=== PATIENT | male | born 1965 | race Caucasian/White ===

== ENCOUNTER 2020-12-22 04:40 | Inpatient (IN) | payer OTHER ==
[~2020-12-22] VITALS: Ht 182.9 cm; Wt 93.0 kg
[2020-12-22] MEDS ORDERED: KETOROLAC TROMETHAMINE INJ 30 MG/ML VIAL IV ONE (07:30)
[2020-12-22] MEDS ORDERED: KETOROLAC TROMETHAMINE 15 MG/ML VIAL ONE (07:32)
--- NOTE | 2020-12-22 08:28 | NUR ---
Reclining in bed NO obvious distress made aware of plan of care
[2020-12-22 08:42] LABS: BASOPHILS # (AUTO) 0.1 K/uL (0.0-0.2); BASOPHILS % (AUTO) 0.5 % (0.0-2.0); EOSINOPHILS % (AUTO) 0.1 % (0.0-6.0); HEMATOCRIT 43 % (39-51); HEMOGLOBIN 14.5 g/dL (13.5-17.5); LYMPHOCYTES # (AUTO) 1.4 K/uL (0.8-4.8); LYMPHOCYTES % (AUTO) 10.2 % (20.0-44.0); MEAN CORPUSCULAR HGB CONC 34 g/dl (31.0-36.0); MEAN CORPUSCULAR VOLUME 97 fL (80-96); MONOCYTES # (AUTO) 0.9 K/uL (0.1-1.30); MONOCYTES % (AUTO) 6.6 % (2.0-12.0); NEUTROPHILS # (AUTO) 11.6 K/uL (1.8-8.9); NEUTROPHILS % (AUTO) 82.6 % (43.0-81.0); PLATELET COUNT (AUTO) 400 K/uL (150-450); RED BLOOD CELL COUNT(AUTO) 4.41 MIL/uL (4.5-6.0)
[2020-12-22 08:49] LABS: CALCIUM, SERUM 8.9 mg/dL (8.5-10.1); CARBON DIOXIDE 27 mmol/L (21-32); CHLORIDE 105 mmol/L (98-107); CREATININE 1.2 mg/dL (0.6-1.3); GLUCOSE 114 mg/dL (74-106); POTASSIUM 4.2 mmol/L (3.5-5.1); SODIUM SERUM 141 mmol/L (136-145); UREA NITROGEN, BLOOD 17 mg/dL (7-18)
[2020-12-22] MEDS ORDERED: IV NS 0.9% 250 ML IV ONE (09:14)
[2020-12-22] MEDS ORDERED: IOHEXOL-350 100 ML VIAL IV ONE (09:14)
[2020-12-22 09:41] LABS: BAND % (MANUAL) 1 % (0.0-5.0); LYMPHOCYTES % (MANUAL) 4 % (16-48); METAMYELOCYTES % 1 % (0-0); MONOCYTES % (MANUAL) 12 % (0-11.0); NEUTROPHILS % (MANUAL) 82 (42-76)
--- NOTE | 2020-12-22 10:03 | NUR ---
MOVE SHEET SUBMITTED AND CALLED FOR BED.
[2020-12-22] MEDS ORDERED: MORPHINE SULFATE INJ 4 MG/ML DISP.SYRIN ONE (10:28)
[2020-12-22] MEDS ORDERED: MORPHINE SULFATE INJ 2 MG/ML DISP.SYRIN IV ONE (10:30)
[2020-12-22] MEDS ORDERED: LIDOCAINE 1% INJ 50 ML MDV IJ ONE ×2 (10:39→12:54)
--- NOTE | 2020-12-22 10:45 | NUR ---
Dr Gauthier at bedside updated pt with plan of care. Consent and prepared for Chest Tube placement. Medicated as per order
--- NOTE | 2020-12-22 12:42 | NUR ---
pt states "feeling better/breathing easier." Able to tolerate sips of clears. For admission- await bed assignment
[2020-12-22] MEDS ORDERED: Z GUARD REMEDY 2 OZ OINT TP PRN (14:00)
[2020-12-22] MEDS ORDERED: MAGNESIUM HYDROXIDE 30 ML UDC PO PRN (14:00)
[2020-12-22] MEDS ORDERED: MAG HYDROX/AL HYDROX/SIMETH 30 ML UDC PO PRN (14:00)
[2020-12-22] MEDS ORDERED: ZOLPIDEM TARTRATE 5 MG TABLET PO PRN (14:00)
[2020-12-22] MEDS ORDERED: ONDANSETRON HCL/PF 4 MG/2 ML VIAL IVP PRN (14:00)
--- NOTE | 2020-12-22 15:03 | NUR ---
Pt states "feel much better/breathing easier. "Denies any pain Able to tolerate/ate Lunch 100%
--- NOTE | 2020-12-22 15:50 | NUR ---
room [id number]
--- NOTE | 2020-12-22 16:45 | NUR ---
Nurse [facility] [employer] to [facility]. Pt made aware of transfer. VSS
[2020-12-22 17:00] VITALS: BP 141/85
--- NOTE | 2020-12-22 17:00 | NUR ---
RN NOTES RECEIVED PT FROM ER. A/O X4. ON 2L O2 VIA NC. NO SOB OR ANY RESPIRATORY DISTRESS NOTED. NO PAIN REPORTED AT THIS TIME. SKIN IS INTACT. IV ACCES AT L AC #20 INTACT, PATENT AND FLUSHED. R CHEST [place] TUBE IN PLACE. REFUSED FLU AND COVID VACCINE. BELONGING LIST SIGNED. SAFETY MEASURES IN PLACE. CALL LIGHT WITHIN REACH. BED LOCKED AND IN LOWEST POSITION WITH SIDE RAILS UP X2. WILL CONTINUE TO MONITOR.
--- NOTE | 2020-12-22 18:51 | NUR ---
RN CLOSING NOTES NO SIGNIFICANT CHANGES THROUGHOUT THE SHIFT. NO SOB OR ANY DISTRESS NOTED. NO PAIN REPORTED AT THIS TIME. KEPT CLEAN AND COMFORTABLE. ALL DUE MEDS GIVEN. NEEDS ATTENDED. SAFETY MEASURES IN PLACE. WILL ENDORSE TO NIGHT RN FOR TYRELL.
[2020-12-22 20:00] VITALS: BP 132/81
[2020-12-23] VITALS: BP 139/91
[2020-12-23 04:00] VITALS: BP 138/82
--- NOTE | 2020-12-23 06:55 | NUR ---
RN CLOSING NOTES NO SIGNIFICANT CHANGES IN CONDITION DURING THE NIGHT, REMAIN STABLE, NO SOB OR ANY DISTRESS NOTED, RIGHT LATERAL CHEST HE[place] PLURAL IN PLACED, NO DISCOMFORT/PAIN REPORTED, ALL SAFETY MEASURES IN PLACE. WILL ENDORSE TO ONCOMING NURSE FOR CONTINUATION CARE.
[2020-12-23 07:32] LABS: BASOPHILS % (AUTO) 0.5 % (0.0-2.0); EOSINOPHILS % (AUTO) 1.2 % (0.0-6.0); HEMATOCRIT 43 % (39-51); HEMOGLOBIN 14.2 g/dL (13.5-17.5); LYMPHOCYTES # (AUTO) 1.9 K/uL (0.8-4.8); LYMPHOCYTES % (AUTO) 20.1 % (20.0-44.0); MEAN CORPUSCULAR HGB CONC 33 g/dl (31.0-36.0); MEAN CORPUSCULAR VOLUME 99 fL (80-96); MONOCYTES # (AUTO) 0.9 K/uL (0.1-1.30); MONOCYTES % (AUTO) 9.8 % (2.0-12.0); NEUTROPHILS # (AUTO) 6.4 K/uL (1.8-8.9); NEUTROPHILS % (AUTO) 68.4 % (43.0-81.0); PLATELET COUNT (AUTO) 367 K/uL (150-450); RED BLOOD CELL COUNT(AUTO) 4.34 MIL/uL (4.5-6.0); WHITE BLOOD COUNT (AUTO) 9.4 K/uL (4.3-11.0)
[2020-12-23 07:40] LABS: CALCIUM, SERUM 8.9 mg/dL (8.5-10.1); CREATININE 1.1 mg/dL (0.6-1.3); MAGNESIUM 2.4 mg/dL (1.8-2.4); PHOSPHORUS 2.1 mg/dL (2.5-4.9); POTASSIUM 4.2 mmol/L (3.5-5.1)
[2020-12-23 08:00] VITALS: BP 124/86
[2020-12-23 09:39] LABS: BAND % (MANUAL) 6 % (0.0-5.0); LYMPHOCYTES % (MANUAL) 20 % (16-48); MONOCYTES % (MANUAL) 10 % (0-11.0); NEUTROPHILS % (MANUAL) 64 (42-76)
[2020-12-23] MEDS ORDERED: MIDAZOLAM HCL 2 MG/2ML VIAL IV ONE ×3 (11:00→17:30)
[2020-12-23] MEDS ORDERED: FENTANYL PF 100MCG/2ML AMPUL IV ONE (11:00)
[2020-12-23 12:00] VITALS: BP 124/86
[2020-12-23] MEDS ORDERED: K PHOS NEUTRAL 250 MG TABLET PO ONE (13:00)
[2020-12-23 16:00] VITALS: BP 124/86
[2020-12-23] MEDS ORDERED: FENTANYL PF 100MCG/2ML AMPUL IV PRN (17:30)
[2020-12-23] MEDS: HYDROMORPHONE 1 MG/1 ML DISP.SYRIN IV PRN ×2 (19:10→22:14)
--- NOTE | 2020-12-23 19:21 | NUR ---
rn note doctor ordered 100mcg of fentanyl to be used
--- NOTE | 2020-12-23 19:30 | NUR ---
RN NOTES, RECEIVED PATIENT IN BED A/O X4 ABLE TO VERBALIZE NEEDS AND CONCERNS, NO SOB/ACUTE DISTRESS NOTED, BREATHING EVEN AND UNLABORED, WITH NEW CHEST TUBE ON RIGHT ANTERIOR CHEST WALL CONNECTED TO PLEUR-EVAC, NO DRAINAGE NOTED, FOR AIR RELEASE, DRESSING DRY AND INTACT, CHEST TUBE SECURED, ON PAIN MANAGEMENT, ISOLATION PRECAUTIONS IN PLACED FOR COVID, CALL LIGHT W/I REACH, WILL CONT TO MONITOR CLOSELY.
[2020-12-23 20:00] VITALS: BP 139/83
[2020-12-24] VITALS: BP 138/82
[2020-12-24 04:00] VITALS: BP 135/79
[2020-12-24] MEDS: HYDROMORPHONE 1 MG/1 ML DISP.SYRIN IV PRN ×3 (05:54→16:05)
[2020-12-24 06:51] LABS: CALCIUM, SERUM 8.3 mg/dL (8.5-10.1); CREATININE 1.2 mg/dL (0.6-1.3); MAGNESIUM 2.2 mg/dL (1.8-2.4); POTASSIUM 4.1 mmol/L (3.5-5.1)
[2020-12-24 08:00] VITALS: BP 152/100
[2020-12-24 12:00] VITALS: BP 147/93
[2020-12-24 16:00] VITALS: BP 144/95
--- NOTE | 2020-12-24 18:53 | NUR ---
RN NOTES, PATIENT A/O X4, NO SOB/ACUTE DISTRESS NOTED, CHEST TUBE IN PLACED TO RELEASE AIR FOR EXPANSION OF THE RIGHT LUNG, NO SIGNIFICANT CHANGE CONDITION DURING MY SHIFT, REMAINS STABLE. WILL ENDORSE CONTINUITY OF CARE TO ONCOMING NURSE.
--- NOTE | 2020-12-24 19:30 | NUR ---
RN NOTE RECEIVED PATIENT IN BED RESTING ALERT ORIENTED X4 VERBALLY RESPONSIVE ON 2L OXYGEN VIA NASAL CANNULA O2:95% IV SITE IS ON LEFT AC INTACT PATENT ,CHEST TUBE IN RIGHT SIDE,CONTINET TO BOWEL/BLADDER SAFETY MEASURE IMPLEMENT CALL LIGHT WITHIN REACH CONTINUE TO MONITOR.
[2020-12-24 20:00] VITALS: BP 140/95
[2020-12-24] MEDS: ACETAMINOPHEN 325 MG TABLET PO PRN (22:34)
[2020-12-25] VITALS: BP 133/82
--- NOTE | 2020-12-25 06:33 | NUR ---
RN NOTE PATIENT REMAINS ON ALERT ORIENTED X4 VERBALLY RESPONSIVE ON 2L OXYGEN VIA NASAL CANNULA, O2:96% NO SOB NOT ACUTE DISTRESS NOTED IV SITE LEFT AC INTACT PATENT,CHEST TUBE IN RIGHT UPPER CHEST,AMBULATORY,ENDORSE NEXT COMING SHIFT FOR CONTINUATION OF CARE.
--- NOTE | 2020-12-25 07:05 | NUR ---
RN OPENING NOTES RECEIVED PT AWAKE IN BED. A/O X4. ABLE TO VERBALIZE NEEDS. NO SOB OR ANY S/S OF ACUTE RESPIRATORY DISTRESS NOTED. CHEST TUBE ON RIGHT ANTERIOR CHEST WALL CONNECTED TO PLEUR-EVAC. FOR AIR RELEASE, DRESSING DRY AND INTACT. ISOLATION PRECAUTIONS IN PLACE. AMBULATORY. SAFETY MEAURES IN PLACE. CALL LIGHT WITHIN REACH. BED LOCKED AND IN LOWEST POSITION WITH SIDE RAILS UP X2. WILL CONTINUE TO MONITOR.
[2020-12-25 08:00] VITALS: BP 135/92
[2020-12-25] MEDS: ACETAMINOPHEN 325 MG TABLET PO PRN (08:47)
[2020-12-25 12:00] VITALS: BP 127/84
[2020-12-25] MEDS: MORPHINE SULFATE INJ 2 MG/ML DISP.SYRIN IV PRN ×2 (12:49→17:45)
[2020-12-25 16:00] VITALS: BP 131/83
--- NOTE | 2020-12-25 18:43 | NUR ---
RN NOTES PT GIVEN INCENTIVE SPIROMETER. EDUCATED ON BENEFITS AND HOW TO USE IS DEVICE.
--- NOTE | 2020-12-25 19:47 | NUR ---
RN NOTE PATIENT IN BED, ALERT AND ORIENTED X4. ON O2 2L VIA NASAL CANNULA, RESPIRATIONS EVEN AND UNLABORED. DENIES ANY PAIN AT THIS TIME. LEFT AC # 20 PATENT AND INTACT. CHEST TUBE ON RIGHT ANTERIOR CHEST WALL CONNECTED TO PLEUR-EVAC NOTED. DRESSING DRY AND INTACT. ISOLATION PRECAUTIONS IN PLACE. BED LOCKED AND IN LOWEST POSITION WITH SIDE RAILS UP X2. CALL LIGHT WITHIN REACH. ALL NEEDS ANTICIPATED.
[2020-12-25 20:00] VITALS: BP 142/93
[2020-12-26] VITALS: BP 136/92
[2020-12-26 04:00] VITALS: BP 136/92
--- NOTE | 2020-12-26 04:21 | NUR ---
PATIENT REFUSED 4AM VITAL SIGNS. EXPLAINED RISKS AND BENEFITS, STILL STRONGLY REFUSED.
[2020-12-26] MEDS: ACETAMINOPHEN 325 MG TABLET PO PRN ×2 (05:37→14:28)
--- NOTE | 2020-12-26 06:55 | NUR ---
RN NOTE PATIENT ALERT AND ORIENTED X4. ON ROOM AIR, O2 SAT 98%. LEFT AC # 20 PATENT AND INTACT. CHEST TUBE ON RIGHT ANTERIOR CHEST WALL CONNECTED TO PLEUR-EVAC NOTED FOR AIR RELEASE. NO OUTPUT THIS SHIFT. DRESSING DRY AND INTACT. ISOLATION PRECAUTIONS IN PLACE. BED LOCKED AND IN LOWEST POSITION WITH SIDE RAILS UP X2. CALL LIGHT WITHIN REACH. WILL ENDORSE TO AM SHIFT.
--- NOTE | 2020-12-26 07:30 | NUR ---
RN NOTE PT FOUND IN SEMI FOWLERS POSITION DISPLAYING NO S/S OF DISTRESS, PT ENDORSES NO PAIN AND IS BREATHING EVEN AND UNLABORED ON RA. PT CHEST TUBE IS INTACT, DRESSING DRY, TIDALING MATCHING RESPIRATIONS. L AC 20G PATIENT AND INTACT. WILL CONTINUE TO MONITOR.
[2020-12-26 08:00] VITALS: BP 126/93
[2020-12-26] MEDS: MORPHINE SULFATE INJ 2 MG/ML DISP.SYRIN IV PRN ×2 (10:53→19:50)
[2020-12-26 12:00] VITALS: BP 102/65
[2020-12-26 16:00] VITALS: BP 133/85
--- NOTE | 2020-12-26 19:30 | NUR ---
RN NOTE PT FOUND IN SEMI FOWLERS POSITION DISPLAYING NO S/S OF DISTRESS, PT ENDORSES NO PAIN AND IS BREATHING EVEN AND UNLABORED ON RA. PT CHEST TUBE IS INTACT, DRESSING DRY, TIDALING MATCHING RESPIRATIONS. L AC 20G PATIENT AND INTACT. CAMPAIGN MANAGER GIVEN REPORT, ALL QUESTIONS ANSWERED. TYRELL TRANSFERRED.
[2020-12-26 20:00] VITALS: BP 139/87
--- NOTE | 2020-12-26 20:00 | NUR ---
FISH BIN TENDER NOTE PATIENT IN BED, ALERT AND ORIENTED X4. ON O2 2L VIA NASAL CANNULA, RESPIRATIONS EVEN AND UNLABORED. DENIES ANY PAIN AT THIS TIME. LEFT AC # 20 PATENT AND INTACT. CHEST TUBE ON RIGHT ANTERIOR CHEST WALL CONNECTED TO PLEUR-EVAC NOTED. DRESSING DRY AND INTACT.DUE MEDS GIVEN ORDERED ,V/S STABLE AFEBRILE .ALL NEEDS ATTENDED TOO ISOLATION PRECAUTIONS IN PLACE. BED LOCKED AND IN LOWEST POSITION WITH SIDE RAILS UP X2. CALL LIGHT WITHIN REACH. WILL CONTINUE TO MONITOR.
[2020-12-27] VITALS: BP 136/87
[2020-12-27] MEDS: MORPHINE SULFATE INJ 2 MG/ML DISP.SYRIN IV PRN ×6 (02:06→18:37)
[2020-12-27 04:00] VITALS: BP 135/89
--- NOTE | 2020-12-27 06:49 | NUR ---
television production assistant notes Pts in bed awake a/ox4 v/s stable afebrile no sob no distress pts is ambulatory,remains on right chest tube 5cc output all needs attended too call light within reach will endorse to rn day shift for continiuty of care.
--- NOTE | 2020-12-27 07:15 | NUR ---
RN Opening Notes Received patient comfortably resting in bed, No SOB, no respiratory distress. Patient denies any pain and discomfort at this time. Patient on O2 at 2lpm via NC. Right chest tube intact and tubings secured. Patient A/Ox 4, is ambulatory and VS WNL. Left AC IV access intact and patent. Call light within reach, bed locked and in lowest position. Will continue to monitor.
[2020-12-27 08:00] VITALS: BP 125/86
[2020-12-27 12:00] VITALS: BP 134/87
[2020-12-27 16:00] VITALS: BP 127/87
--- NOTE | 2020-12-27 19:27 | NUR ---
RN CLOSING NOTE Pt is A/O X 4, no respiratory distress noted, no SOB. Patient denies any pain and discomfort at this time. All needs met. Kept patient clean and dry. Endorsed care to incoming nurse for continuity of care. call light within reach.
[2020-12-27 20:00] VITALS: BP 130/79
[2020-12-28] VITALS: BP 134/89
[2020-12-28] MEDS: MORPHINE SULFATE INJ 2 MG/ML DISP.SYRIN IV PRN ×4 (00:01→18:53)
--- NOTE | 2020-12-28 07:20 | NUR ---
RN OPENING NOTES RECEIVED PT AWAKE IN BED. A/O X4. ABLE TO VERBALIZE NEEDS. NO SOB OR ANY S/S OF ACUTE RESPIRATORY DISTRESS NOTED. CHEST TUBE ON RIGHT ANTERIOR CHEST WALL CONNECTED TO PLEUR-EVAC. FOR AIR RELEASE, DRESSING DRY AND INTACT. ISOLATION PRECAUTIONS IN PLACE. AMBULATORY. SAFETY MEASURES IN PLACE. CALL LIGHT WITHIN REACH. BED LOCKED AND IN LOWEST POSITION WITH SIDE RAILS UP X2. WILL CONTINUE TO MONITOR.
[2020-12-28 09:12] VITALS: BP 134/88
[2020-12-28 12:00] VITALS: BP 130/85
[2020-12-28 16:00] VITALS: BP 137/88
[2020-12-28 20:00] VITALS: BP 133/77
[2020-12-29] MEDS: MORPHINE SULFATE INJ 2 MG/ML DISP.SYRIN IV PRN ×3 (00:58→12:33)
--- NOTE | 2020-12-29 07:25 | NUR ---
RN NOTE OBSERVED PATIENT IN BED, AWAKE AND ORIENTED X4 RADHA TO VERBALIZE NEEDS, ON ROOM AIR O2 SAT OF 98% BREATHING EVEN AND UNLABORED, SKIN INTACT, WITH LEFT AC PATENT FLUSHING WELL, AFEBRILE AT THIS TIME, NOTED RIGHT CHEST TUBE WATER SEAL, SAFETY MEASURES OBSERVED, BED WHEELS LOCK, CALL LIGHT WITHIN REACH, WILL CONTINUE TO MONITOR PATIENT. Addendum: 12/29/20 at 0839 by GUILLERMO PATTON RN RN NOTE OBSERVED PATIENT IN BED, AWAKE AND ORIENTED X4 ABLE TO VERBALIZE NEEDS, ON ROOM AIR O2 SAT OF 98% BREATHING EVEN AND UNLABORED, SKIN INTACT, WITH LEFT AC PATENT FLUSHING WELL, AFEBRILE AT THIS TIME, NOTED RIGHT CHEST TUBE WATER SEAL, SAFETY MEASURES OBSERVED, BED WHEELS LOCK, CALL LIGHT WITHIN REACH, WILL CONTINUE TO MONITOR PATIENT.
[2020-12-29 12:00] VITALS: BP 133/77
--- NOTE | 2020-12-29 15:38 | NUR ---
RN NOTE PATIENT SEEN AND EVALUATED BY , REMOVED CHEST TUBE, MEDICATED PATIENT FOR PAIN PRIOR TO PROCEDURE, PATIENT TOLERATED WELL NO BLEEDING NOTED WILL CONTINUE TO MONITOR.
--- NOTE | 2020-12-29 18:39 | NUR ---
RN NOTE OBSERVED PATIENT IN BED, AWAKE AND ORIENTED X4 ABLE TO VERBALIZE NEEDS, ON ROOM AIR O2 SAT OF 98% BREATHING EVEN AND UNLABORED, SKIN INTACT, WITH LEFT AC PATENT FLUSHING WELL, AFEBRILE AT THIS TIME, S/P CHEST TUBE REMOVAL. SAFETY MEASURES OBSERVED, BED WHEELS LOCK, CALL LIGHT WITHIN REACH, WILL CONTINUE TO MONITOR PATIENT, PT FOR DISCHARGE PLANNING, WILL ENDORSE TO NOC SHIFT.
--- NOTE | 2020-12-29 19:10 | NUR ---
RN NOTE PT RECEIVED IN BED. PT IS A/OX4. CURRENTLY ON ROOM AIR SHOWING NO S/S OF RESP DISTRESS/SOB. BREATHING EVEN AND UNLABORED. PT IS AMBULATORY. SKIN INTACT. IV LINE ON LEFT AC NOTED. ALL SAFETY MEASURES IMPLEMENTED. CALL LIGHT WITHIN REACH. BED ALARM ON. BED LOCKED AND IN LOWEST POSITION. WILL CONTINUE TO MONITOR THROUGHOUT THE SHIFT.
[2020-12-29] MEDS: ACETAMINOPHEN 325 MG TABLET PO PRN (19:44)
--- NOTE | 2020-12-29 19:57 | NUR ---
RN NOTE PT IV LINE WAS INFILTRATED. REMOVED IV LINE AND APPLIED ICE. PT DOES NOT WANT ANOTHER IV LINE INSERTED.
[2020-12-29 20:00] VITALS: BP 138/79
[2020-12-30 04:00] VITALS: BP 138/79
--- NOTE | 2020-12-30 04:06 | NUR ---
RN NOTE PT REFUSING 0400 VITAL SIGNS. EXPLAINED RISKS/BENEFITS BUT PT STILL REFUSED.
[2020-12-30] MEDS: ACETAMINOPHEN 325 MG TABLET PO PRN (05:54)
--- NOTE | 2020-12-30 06:35 | NUR ---
RN NOTE NO CHANGES IN PT CONDITION DURING SHIFT. PT IS A/OX4. CURRENTLY ON ROOM AIR SHOWING NO S/S OF RESP DISTRESS/SOB. BREATHING EVEN AND UNLABORED. PT IS AMBULATORY. SKIN INTACT. IV LINE INFILTRATED AND PT DID NOT WANT TO ANOTHER IV LINE RE-INSERTED. ALL DUE MEDS GIVEN ORDERED. PT KEPT CLEAN AND COMFORTABLE. ALL SAFETY MEASURES IMPLEMENTED. CALL LIGHT WITHIN REACH. BED ALARM ON. BED LOCKED AND IN LOWEST POSITION. WILL CONTINUE TO MONITOR THROUGHOUT THE SHIFT.
--- NOTE | 2020-12-30 07:40 | NUR ---
MS RN NOTE RECEIVED PATIENT IN BED. PT IS A/OX4, ON ROOM AIR TOLERATING WELL, NO S/S OF RESP DISTRESS/SOB. BREATHING EVEN AND UNLABORED. PT IS AMBULATORY. SKIN INTACT. NO IV ACCESS AT THIS TIME, REFUSING IV TO BE REINSERTED. SAFETY MEASURES IN PLACE: CALL LIGHT WITHIN REACH. BED ALARM ON. BED LOCKED AND IN LOWEST POSITION. WILL CONTINUE TO MONITOR ACCORDINGLY.
--- NOTE | 2020-12-30 11:45 | NUR ---
MS SOCIAL WORK SUPERVISOR NOTES DISCHARGED PATIENT IN STABLE CONDITION. VITAL SIGNS WITHIN NORMAL LIMITS. HOME/HEALTH INSTRUCTIONS PROVIDED. INSTRUCTED TO FOLLOW UP WITH PRIMARY CARE PHYSICIAN IN 1 WEEK. PATENT VERBALIZED UNDERSTANDING. BELONGINGS ACCOUNTED AND SIGNED FOR. ARMBAND REMOVED. NO IV ACCESS. INSTRUCTIONS ON COVID ISOLATION PROVIDED, PATIENT VERBALIZED UNDERSTANDING. ACCOMPANIED TO LOBBY BY SIRIA ELIZABETH. PATIENT WAS THEN PICKED UP BY HIS JENNA. ADELINE AND CHARGE NURSE AWARE OF DISCHARGE.
== END 2020-12-30 11:46 | disposition home or self-care (01) | DRG 177 ==
LOC: ER 04:40 → TRANSITION 15:02 → TELE1 15:51 → TELE-TD 12-23 20:12 → TELE1 12-24 07:48 → MEDSG1 12-28 10:04
PROVIDERS: ADMIT Internal Medicine; ATTEND Internal Medicine
PROC: 0W9930Z Drainage of Right Pleural Cavity with Drainage Device, Percutaneous Approach (ICD-10-PCS; principal; 2020-12-22)
PROC: 0W9930Z Drainage of Right Pleural Cavity with Drainage Device, Percutaneous Approach (ICD-10-PCS; 2020-12-23)
PROC: 0W9930Z Drainage of Right Pleural Cavity with Drainage Device, Percutaneous Approach (ICD-10-PCS; 2020-12-23)
DX: U07.1 COVID-19 (principal); J96.01 Acute respiratory failure with hypoxia; J93.9 Pneumothorax, unspecified; D72.829 Elevated white blood cell count, unspecified; Z87.01 Personal history of pneumonia (recurrent); F12.10 Cannabis abuse, uncomplicated; Z86.16 Personal history of COVID-19; E83.39 Other disorders of phosphorus metabolism
CPT/HCPCS: 32551; 36415; 71045-TC; 80048-TC; 83735-TC; 83880; 84100-TC; 84484-TC; 85025-TC; 85378-TC; A6403; G0378; J1170; J1885; J2250; J2270; J3010; J3490; J7050; Q9967; U0003

== ENCOUNTER 2021-01-23 08:49 | Emergency (ER) | payer BC, OTHER ==
[~2021-01-23] VITALS: Ht 185.4 cm; Wt 90.7 kg
--- NOTE | 2021-01-23 09:15 | NUR ---
To ER BED 4, sent by pmd for hemoptysis x 1 episode after working out at the gym, AAOX4, breathing even and non labored
--- NOTE | 2021-01-23 10:28 | NUR ---
Patient discharged to home in stable condition. Written and verbal after care instructions given. Patient verbalizes understanding of instruction.
[2021-01-23 10:55] VITALS: BP 131/80
== END 2021-01-23 10:56 | disposition home or self-care (01) ==
LOC: ER 08:56
DX: R04.2 Hemoptysis (principal); F17.200 Nicotine dependence, unspecified, uncomplicated
CPT/HCPCS: 71046